=== PATIENT | female | born 1995 | race Caucasian/White ===

== ENCOUNTER 2021-01-09 20:35 | Emergency (ER) | payer OTHER ==
[~2021-01-09] VITALS: Ht 170.2 cm; Wt 85.8 kg
[2021-01-09 20:35] VITALS: BP 116/78
[2021-01-09] MEDS ORDERED: LIDOCAINE 2%/EPI 1:100,000 20 ML VIAL. IJ ONE (21:15)
[2021-01-09] MEDS ORDERED: AMOXICILLIN/K CLAV 875/125MG TABLET. PO ONE (21:15)
--- NOTE | 2021-01-09 21:15 | RAD ---
Exam: Right finger 3 views INDICATION: Injury to fifth digit TECHNIQUE: Frontal, lateral and oblique views of the fifth digit Comparisons: None FINDINGS: Transverse fractures through the distal phalanx of the fifth digit. Mild surrounding soft tissue swel ling. Bone mineralization is normal. Joint spaces are well-maintained. IMPRESSION: Transverse fracture through the distal phalanx of the fifth digit. Electronically signed by: Karla Catherine MD (01/09/2021 9:13 PM) GENNY
[2021-01-09] MEDS ORDERED: LIDOCAINE 1%/EPI 1:100,000 20 ML VIAL. ONE (21:26)
[2021-01-09] MEDS ORDERED: LIDOCAINE 1%/EPI 1:100,000 20 ML VIAL. IJ ONE (21:30)
[2021-01-09] MEDS ORDERED: NEOMY/BACITR/POLYMYXIN OINT PACKET. TP ONE (23:45)
--- NOTE | 2021-01-09 23:45 | RAD ---
Exam: Right finger 3 views INDICATION: Pinky status post reduction of finger TECHNIQUE: Frontal, lateral and oblique views of the fifth digit Comparisons: None FINDINGS: Improved alignment at the transverse fracture distal phalanx fifth digit. Remainder of the exam is un changed. IMPRESSION: Improved alignment at the distal phalanx fifth digit. Electronically signed by: Karla Catherine MD (01/09/2021 11:42 PM) MRAYELLEN
[2021-01-09] MEDS ORDERED: HYDR-2155 PO (23:54)
[2021-01-09] MEDS ORDERED: AMOX1TAB61 PO (23:54)
--- NOTE | 2021-01-09 23:57 | PHYS DOC ---
Past History Past Medical History: No Pertinent History Past Surgical History: No Surgical History Smoking: Non-smoker Alcohol Use: None Drug Use: None General Adult EDM: Chief Complaint: FINGER INJURY HPI: HPI: 25-year-old female presents with report of pain and deformity to right little finger after accidentally getting it caught while shutting locker while at work. Patient reports some bleeding and laceration to this area. Reports bleeding controlled with direct pressure. Denies other injury. Tetanus up-to-date. Denies . Review of Systems: Review of Systems: Constitutional: Denies fever or chills Musculoskeletal: Denies back pain; reports pain and deformity to right 5th finger Integument: Reports laceration and swelling to right 5th finger Neurologic: Denies focal weakness or sensory changes Complete systems were reviewed and found to be within normal limits, except as documented in this note. Current Medications: Current Meds: Current Medications Medications (Trade) Dose Ordered Sig/Mercedes Start Time Stop Time Status Last Admin Dose Admin Amoxicillin/ Clavulanate Potassium (Augmentin 875/ 125mg) 1 tab 1X ONCE 01/09/21 21:15 01/09/21 21:23 DC 01/09/21 21:31 1 TAB Lidocaine/ Epinephrine (Xylocaine 1%-Epi 1:100,000) 20 ml 1X ONCE 01/09/21 21:30 01/09/21 21:34 DC 01/09/21 21:32 20 ML Lidocaine/ Epinephrine (Xylocaine 2%-Epi 1:100,000) 20 ml 1X ONCE 01/09/21 21:15 01/09/21 21:21 DC Neomycin/ Polymyxin/ Bacitracin (Triple Antibiotic Ointment) 1 pkt 1X ONCE 01/09/21 23:45 01/09/21 23:46 DC Allergies: Allergies: Allergies Coded Allergies Type Severity Reaction Last Updated Verified No Known Drug Allergies 01/09/21 No Physical Exam: PE: Constitutional: Well developed, well nourished, no acute distress, non-toxic appearance HENT: Normocephalic, atraumatic Eyes: Conjunctiva normal, no discharge Neck: Normal range of motion, supple Lungs & Thorax: No respiratory distress, equal chest rise and fall Skin: Warm, dry, no erythema, 2 cm laceration to dorsum of right fifth finger around nail bed with nail plate avulsion Extremities: Right fifth finger deformity with nail plate avulsion and laceration as above, right radial pulse +2, right fifth finger cap refill less than 2 seconds Neurologic: Alert and oriented X 3, no focal deficits noted Psychologic: Affect normal, judgment normal Current Patient Data: Vital Signs: Vital Signs Date Time Temp Pulse Resp B/P (MAP) Pulse Ox O2 Delivery O2 Flow Rate FiO2 01/09/21 20:35 97.7 90 16 116/78 (91) 100 Room Air EKG: EKG: [] Radiology/Procedures: Radiology/Procedures: PROCEDURE: FINGER(S) RIGHT Exam: Right finger 3 views INDICATION: Injury to fifth digit TECHNIQUE: Frontal, lateral and oblique views of the fifth digit Comparisons: None FINDINGS: Transverse fractures through the distal phalanx of the fifth digit. Mild surrounding soft tissue swelling. Bone mineralization is normal. Joint spaces are well-maintained. IMPRESSION: Transverse fracture through the distal phalanx of the fifth digit. Electronically signed by: Karla Catherine MD (01/09/2021 9:13 PM) GENNY PROCEDURE: FINGER(S) RIGHT Exam: Right finger 3 views INDICATION: Pinky status post reduction of finger TECHNIQUE: Frontal, lateral and oblique views of the fifth digit Comparisons: None FINDINGS: Improved alignment at the transverse fracture distal phalanx fifth digit. Remainder of the exam is unchanged. IMPRESSION: Improved alignment at the distal phalanx fifth digit. Electronically signed by: Karla Catherine MD (01/09/2021 11:42 PM) GENNY Heart Score: C/O Chest Pain: N/A Course & Med Decision Making: Course & Med Decision Making Pertinent Imaging studies reviewed. (See chart for details) Patient presents with pain and deformity to right little finger which occurred after getting it slammed into a locker. X-ray obtained with signs of acute fr acture. Patient noted to also have laceration and nail avulsion. Digital block performed with manipulation of bone fragment and replacement of nail plate. Laceration and nail sutured. Dressing applied. Repeat x-ray confirmed improved alignment of fracture fragments. Aluminum splint applied. Empiric antibiotic initiated. Patient stable for discharge with outpatient follow-up with PCP/hand surgeon. Hand surgery referral provided. Discussed findings and plan with patient and friend, who acknowledge understanding and agreement. Arnold Disclaimer: Arnold Disclaimer: This electronic medical record was generated, in whole or in part, using a voice recognition dictation system. Splinting Splinting : Location: Right 5th finger Pre-Made Type: metal (Aluminum finger splint) Pre-Proc Neuro Vasc Exam: normal Post-Proc Neuro Vasc Exam: normal, unchanged from pre-exam Laceration/Wound Repair Laceration/Wound Repair : Wound Location: upper extremity (Right fifth finger) Wound's Depth, Shape: linear, nail-avulsed Wound Length (cm): 2 Wound Explored: no foreign body removed Irrigated w/ Saline (ccs): 200 Anesthesia: Lidocaine w/ Epi (1%) Volume Anesthetic (ccs): 2 Wound Debrided: minimal Wound Repaired With: sutures Suture Size/Type: 5:0, nylon Number of Sutures: 5 Sterile Dressing Applied?: Yes Splint Applied?: Yes Type of Splint Applied: Aluminum finger splint Progress Verbal consent obtained. Time out performed. Hand hygiene utilized. Wound cleaned with ChloraPrep. Anesthesia obtained via 4 nerve digital block by dorsal approach with a 25-gauge hypodermic needle with total of (2) mL's of lidocaine 1% with epinephrine. Copious irrigation performed to wound. Manipulation of distal fracture performed with improved alignment. Nail plate replaced under nail fold and sutured in place. Laceration then well approximated with sutured. A total of 5 simple interrupted sutures were placed of 5-0 Nylon. Empiric antibiotic ointment applied prior to sterile dressing. Repeat XR obtained with improved alignment of fracture. Aluminum finger splint applied. Patient tolerated procedure well and without difficulty. Departure Departure: Impression: Primary Impression: Avulsion, finger tip Qualified Codes: S61.209A - Unspecified open wound of unspecified finger without damage to nail, initial encounter Additional Impression: Nail avulsion, finger Qualified Codes: S61.309A - Unspecified open wound of unspecified finger with damage to nail, initial encounter Disposition: 01 HOME / SELF CARE / HOMELESS Condition: STABLE Referrals: PCP,UNKNOWN (PCP) Patient Instructions: Finger Avulsion, Laceration Care, Adult, [id number], Nail Avulsion Injury Additional Instructions: Do not soak your wound. You may shower. Clean wound daily with soap and water. Change dressing 2 times daily. Use over the counter antibiotic ointment with each dressing change. Sutures need to be removed in 7-10 days. Present to your family doctor or local urgent care for removal. You may also present to the ED but it will be an additional visit/charge. After suture removal you may use Vitamin E ointment to soften the wound and prevent scarring. Maintain finger in finger splint until seen by Hand surgeon. Return for any increased redness or fever > 100.3 Call Orthopedics for follow-up in 5-7 days for re-evaluation of your wound. Address: [address] [place] [address] Scripts Hydrocodone Bit/Acetaminophen (HYDROCODONE-APAP 5-325 ) 1 Each Tablet 0.5-1 TAB PO PRN Q6HRS PRN for PAIN, #10 TAB 0 Refills Prov: ELIZABET PANTOJA DO 01/09/21 Amoxicillin/Potassium Clav (AUGMENTIN 875-125 TABLET) 1 Each Tablet 1 TAB PO BID for Finger tip avulsion for 10 Days, #20 TAB 0 Refills Prov: ELIZABET PANTOJA DO 01/09/21 ELIZABET PANTOJA DO January 09, 2021 23:57
== END 2021-01-10 00:04 | disposition home or self-care (01) ==
LOC: ER 20:35
DX: S61.306A Unspecified open wound of right little finger with damage to nail, initial encounter (principal); W22.8XXA Striking against or struck by other objects, initial encounter; Y93.89 Activity, other specified; Y92.89 Other specified places as the place of occurrence of the external cause; Y99.8 Other external cause status
CPT/HCPCS: 29130; 73140; 99283